=== PATIENT | female | born 2000 | race Caucasian/White ===

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

== ENCOUNTER 2023-03-01 05:17 | Emergency (ER) | payer OTHER, SELFPAY ==
[2023-03-01 05:19] VITALS: BP 143/90; PULSE 99; RESP 17; TEMP 37.2; O2SAT 97; BMI 27.1
--- NOTE | 2023-03-01 05:30 | CT_ITS ---
INDICATION: sore throat X 24 HOURS EXAMINATION: CT NECK WITH CONTRAST - CT Soft Tissue Neck W/ Contrast Injection TECHNIQUE: Helically acquired images were obtained of the neck with sagittal and coronal reconstructed images. Individualized dose optimization techniques were used for this CT. IV contrast dosage and agent: 75 mL of Isovue-370. COMPARISON: None. FINDINGS: NASOPHARYNX: Unremarkable. SUPRAHYOID NECK: Bilateral tonsils are enlarged and heterogeneous with small loculated areas of fluid attenuation. No dominant drainable abscess is identified. There is peritonsillar soft tissue swelling and fat stranding. INFRAHYOID NECK: Unremarkable larynx, hypopharynx, and supraglottis. THYROID: No nodule or mass visualized. SALIVARY GLANDS: Unremarkable. LYMPH NODES: Enlarged bilateral cervical lymph nodes measuring up to 1.4 cm in short axis diameter on the right and 1.3 cm on the left. VASCULAR STRUCTURES: Unremarkable. VISUALIZED PORTIONS OF THE ORBITS, PARANASAL SINUSES, MASTOID AIR CELLS AND SKULL BASE: Unremarkable. BONES: Unremarkable. THORACIC INLET: Visualized lung apices are clear. CT/Soft Tissue Neck WITH Contrast IMPRESSION: 1. Enlarged and heterogeneous bilateral tonsils with small loculated fluid collections consistent with phlegmonous changes of tonsillitis. No well-formed drainable abscess is identified. 2. Bilateral cervical lymphadenopathy, likely reactive. Electronically Signed: Aunp Rogel DO at 6:33 EDT ,
--- NOTE | 2023-03-01 05:31 | EX.ED.DYSGE1 ---
HPI History of Present Illness Chief Complaint: Abscess Narrative Narrative: 22-year-old female with sore throat since yesterday. She states she was started on Cipro yesterday to 50 mg p.o. twice daily. She is not getting better. She admits to fevers, chills, body aches. She states her throat is getting sore and she feels like it is going to obstruct her airway. Some difficulty swallowing. No drooling. No drainage in the back of her throat. States the left side feels more full. He states she seen Dr. Crum in the past. PFSH PFSH Home Medications amoxicillin 875 mg-potassium clavulanate 125 mg tablet 1 tab PO BID #20 tabs 03/01/23 [Rx Last Taken Unknown] ciprofloxacin HCl 250 mg tablet (Cipro) 250 mg PO BID 03/01/23 [History Last Taken Unknown] naproxen 500 mg tablet (Naprosyn) 500 mg PO BID PRN pain #20 tabs 03/01/23 [Rx Last Taken Unknown] ondansetron 4 mg disintegrating tablet 4 mg PO Q8H PRN PRN Nausea #14 tabs 03/01/23 [Rx Last Taken Unknown] Allergy/AdvReac Type Severity Reaction Status Date / Time No Known Allergies Allergy Verified 10/27/16 04:38 Social History Smoking Status: Never smoker ROS ROS ED Review of Systems ROS Unobtainable: due to encephalopathy Constitutional Constitutional ED: Reports chills and fever(s) Eyes Eyes: Denies change in vision or diplopia ENT ENT ED: Reports sore throat; Denies dental pain, dysphagia, lip swelling, loss taste/smell, nasal congestion, neck mass or rhinorrhea Cardiovascular Cardiovascular: Denies chest pain or palpitations Respiratory/Chest Respiratory/Chest: Denies cough or dyspnea Gastrointestinal Gastrointestinal: Denies abdominal pain or constipation Genitourinary Genitourinary ED: Denies dysuria Musculoskeletal Musculoskeletal: Denies arthralgias or back pain Integumentary Denies abscess or Abrasions Neurologic Neurologic: Denies headache(s) Psychiatric Psychiatric: Denies anxiety or depression EXAM Physical Exam Const Vital Signs: 03/01/23 05:19 Temperature 98.9 F Temperature Source Temporal Pulse Rate 99 Respiratory Rate 17 Blood Pressure 143/90 H Blood Pressure Mean 107 Pulse Ox 97 Oxygen Delivery Method Room Air Positive well nourished General Appearance ED: NAD; Negative for pallor HEENT Reports moist mucous membranes normocephalic Face and Sinus: normal facial exam Nose: external nose normal External Ear: external ears normal Tympanic Membrane ED: Yes TM's normal bilaterally Mouth ED: Yes lips normal, Yes tongue normal, Yes moist mucous membranes normal, No drooling, No fetor hepaticus and No muffled voice Mouth: lips normal, tongue normal, No drooling, No fetor hepaticus and No muffled voice Throat: tonsils abnormal and posterior oropharynx abnormal Positive for edema, erythema and exudates; Negative for peritonsillar mass Eyes PERRL Neck Neck Narrative: No stridor General: trachea midline and lymphadenopathy anterior cervical; Negative for anterior neck swelling Chest Wall inspection of chest normal Resp normal respiratory effort Effort and Inspection: Negative for retractions Cardio regular rate and regular rhythm Neuro oriented x3 and CN's II-XII intact bilaterally Sensorium / Orientation: alert Psych mental status grossly normal Skin General Skin Exam: Negative for jaundice or pallor MDM MDM MDM Narrative Medical decision making narrative: Patient with reported history of fever, chills, body aches in association with sore throat. She had a negative rapid strep test yesterday. She was placed on ciprofloxacin to 50 mg p.o. twice daily. She states is not helping. She states has had this in the past and it was effective to use Augmentin. He is not allergic to any medications. I did obtain a CBC to assess white blood cell count, hemoglobin, platelets, differential. BMP to assess renal function, electrolytes, glucose, anion gap. Serum was assessed to assess for . CBC shows a leukocytosis of 15.5. Hemoglobin hematocrit are stable. Platelets are normal. Renal function is within normal limits. Electrolytes are normal. Serum hCG is negative. Patient was medicated with 1 L of normal saline, 4 mg of Zofran, 15 mg of Toradol, 10 mg of dexamethasone. She was also given a dose of Zosyn 3.[address] of the soft tissue of the neck shows enlarged bilateral tonsils without evidence of abscess. On reevaluation at 640 the patient is doing much better. Her throat is feeling better as well. Patient will be given a prescription for Zofran, Augmentin, Naprosyn. The ciprofloxacin will be discontinued. She declines any other further analgesia. She will follow-up with Dr. Batista who she seen in the past. Return precautions discussed. Impression: 1. Tonsillitis 2. Febrile illness 3. Leukocytosis Lab Data Attestation: I reviewed the patient's lab results. Labs: Laboratory Results - last 24 hr 03/01/23 03/01/23 03/01/23 05:54 05:54 05:54 WBC 15.5 H RBC 4.73 Hgb 14.3 Hct 41.7 MCV 88.2 MCH 30.2 MCHC 34.3 RDW Std Deviation 38.0 RDW Coeff of Ginny 11.9 Plt Count 233 MPV 10.5 Immature Gran % (Auto) 0.600 Neut % (Auto) 79.2 H Lymph % (Auto) 9.8 L [place] % (Auto) 9.8 Eos % (Auto) 0.1 Baso % (Auto) 0.5 Absolute Neuts (auto) 12.2 H Absolute Lymphs (auto) 1.51 Nucleated RBC % 0 Differential Comment SCANNED Diff Path Review May foll Platelet Estimate ADEQUATE RBC Morphology NORM C+C Sodium 137 Potassium 3.6 Chloride 106 Carbon Dioxide 24.0 Anion Gap 7 BUN 6 L Creatinine 0.88 Estim Creat Clear Calc 98.34 Est GFR (MDRD) Af Amer 104 Est GFR (MDRD) Non-Af 86 BUN/Creatinine Ratio 6.8 L Glucose 109 H Calcium 9.4 Serum , Qual NEGATIVE Radiography Diagnostic Testing: Clinical Impression(s) from Imaging Studies Soft Tissue Neck CT 03/01/23 05:30 IMPRESSION: 1. Enlarged and heterogeneous bilateral tonsils with small loculated fluid collections consistent with phlegmonous changes of tonsillitis. No well-formed drainable abscess is identified. 2. Bilateral cervical lymphadenopathy, likely reactive. Electronically Signed: Anup Rogel DO at 6:33 EDT , Discharge Plan Triage Chief Complaint: Abscess ED Provider: Yinka Crump Dx/Rx/DC Orders Instructions: ED Tonsillitis Prescriptions: New amoxicillin-pot clavulanate 875-125 mg tablet 1 tab PO BID Qty: 20 0RF naproxen [Naprosyn] 500 mg tablet 500 mg PO BID PRN (Reason: pain) Qty: 20 0RF ondansetron 4 mg tablet,disintegrating 4 mg PO Q8H PRN PRN (Reason: Nausea) Qty: 14 0RF No Action ciprofloxacin HCl [Cipro] 250 mg Tablet 250 mg PO BID Primary Care Provider: Janet White Referrals: Carlos Alberto Crum MD [Med Staff - Active Staff] - 3-5 Days if not improving Janet White PA-C [Primary Care Provider] - Disposition Disposition: Home, Self Care
[2023-03-01] MEDS: Ketorolac 15 MG/ML Vial IV (05:51)
[2023-03-01] MEDS: 0.9% Normal Saline 1,000 ML 1000 ML IV (05:52)
[2023-03-01] MEDS: dexAMETHasone 10 MG/ML Vial IV (05:52)
[2023-03-01 06:00] LABS: Absolute Lymphocyte Count 1.51 X10^3/uL (0.83-4.51); Absolute Neutrophil Count 12.2 X10^3/uL (2.0-7.7); Basophil# 0.07 X10^3/uL; Basophil% 0.5 % (0-1); Eosinophil# 0.02 X10^3/uL; Eosinophils% 0.1 % (0-5); Hematocrit 41.7 % (37-47); Hemoglobin 14.3 g/dL (12.0-15.0); Lymphocyte # 1.51 X10^3/ul (0.83-4.51); Lymphocyte % 9.8 % (19-41); Mean Corp Hgb Conc 34.3 g/dL (32-36); Mean Corpuscular Hgb 30.2 pg (27.0-32.0); Mean Corpuscular Volume 88.2 fL (81-99); Mean Platelet Vol. 10.5 fl (6.2-12.0); Monocyte# 1.52 X10^3/uL; Monocyte% 9.8 % (0-10); NRBC Flagged by Analyzer 0 % (0-5); Neutrophil # 12.24 X10^3/uL (2.7-7.7); Neutrophil % 79.2 % (47-70); POSITIVE DIFFERENTIAL YES; Platelet Count 233 K/mm3 (150-450); RBC Distribution Width CV 11.9 % (11.6-14.6); Red Blood Count 4.73 M/mm3 (4.2-5.4); White Blood Count 15.5 K/mm3 (4.4-11.0)
[2023-03-01 06:13] LABS: Internal QC Validated? YES +Cl - CLEAR BKGD; Pregnancy, Serum, hCG Quali. NEGATIVE Negative
[2023-03-01 06:18] LABS: Anion Gap 7 (5-15); BUN 6 mg/dL (7-18); BUN/Creat Ratio 6.8 RATIO (10-20); Calcium,Total 9.4 mg/dL (8.5-10.1); Chloride 106 mmol/L (98-107); Creatinine, Serum 0.88 mg/dL (0.55-1.02); EST Glomerular Filtration Rate 86 mL/min (>60); Est Glom Filt Rate - Afr Amer 104 mL/min (>60); Estimated Creatinine Clearance 98.34 ml/min; Glucose 109 mg/dL (74-106); Potassium 3.6 mmol/L (3.5-5.1); Sodium Level 137 mmol/L (136-145)
[2023-03-01 06:21] LABS: Differential Indicated SCAN CRITERIA MET
[2023-03-01 06:35] LABS: Differential Comment SCANNED; Platelet Estimate ADEQUATE (ADEQ)
[2023-03-01 06:36] LABS: Red Cell Morphology NORM C+C NORMAL (NORM C&C)
[2023-03-03 13:02] LABS: Pathologist Review Reviewed
== END 2023-03-01 06:54 | disposition home or self-care (01) ==
PROVIDERS: Emergency Provider Student in an Organized Health Care Education/Training Program; PCP Family Medicine; Visit Provider Student in an Organized Health Care Education/Training Program
DX: J03.90 Acute tonsillitis, unspecified (principal); D72.829 Elevated white blood cell count, unspecified
CPT/HCPCS: 70491; 80048; 84703; 85025; 96365; 96375; 99283; J7030; Q9967; A4216